=== PATIENT | female | born 1995 ===

== ENCOUNTER 2016-11-25 10:33 | Emergency (ER) | payer OTHER ==
[2016-11-25 10:36] VITALS: BMI 25.0
[2016-11-25 10:38] VITALS: BP 121/65; PULSE 84; RESP 18; TEMP 98.2; O2SAT 100
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
== END 2016-11-25 12:33 | disposition home or self-care (01) ==
LOC: H.ER 10:33
DX: S16.1XXA Strain of muscle, fascia and tendon at neck level, initial encounter (principal); S46.912A Strain of unspecified muscle, fascia and tendon at shoulder and upper arm level, left arm, initial encounter; V43.52XA Car driver injured in collision with other type car in traffic accident, initial encounter; Y93.9 Activity, unspecified

== ENCOUNTER 2017-04-18 15:48 | Emergency (ER) | payer OTHER ==
[2017-04-18 15:48] VITALS: BMI 25.0
[2017-04-18 16:02] VITALS: BP 104/68; PULSE 68; RESP 16; TEMP 98.1; O2SAT 98
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
== END 2017-04-18 18:47 | disposition home or self-care (01) ==
LOC: H.ER 15:48
DX: M50.20 Other cervical disc displacement, unspecified cervical region (principal); G89.29 Other chronic pain
CPT/HCPCS: 81025; 96372; 99281; J1885

== ENCOUNTER 2018-09-10 11:44 | Emergency (ER) | payer OTHER ==
[2018-09-10 11:57] VITALS: BMI 26.5
[2018-09-10 11:59] VITALS: BP 113/69; PULSE 82; RESP 20; TEMP 98.3; O2SAT 99
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
== END 2018-09-10 13:26 | disposition home or self-care (01) ==
LOC: H.ER 11:44
DX: M62.838 Other muscle spasm (principal); G89.29 Other chronic pain
CPT/HCPCS: 81025; 96372; 99283; J1885